=== PATIENT | male | born 1975 | race Caucasian/White ===

== ENCOUNTER 2016-09-08 09:48 | Inpatient (IN) | payer OTHER ==
[~2016-09-08] VITALS: Ht 182.9 cm; Wt 83.5 kg
[2016-09-08 09:50] VITALS: BP 143/87
--- NOTE | 2016-09-08 09:54 | NUR ---
Patient ambulated to bed 03.
--- NOTE | 2016-09-08 09:55 | NUR ---
PATIENT PRESENTS TO ED WITH mid upper back pain radiating to mid chest and shoulders . PT STATES felt nausea and x1 episode of emesis; SKIN IS PINK/WARM/DRY; AAOX4 WITH EVEN AND STEADY GAIT; LUNGS CLEAR BL; HR EVEN AND REGULAR; PT DENIES ANY FEVER SOB, OR COUGH AT THIS TIME; PATIENT STATES PAIN OF 7/10 AT THIS TIME; VSS; PATIENT POSITIONED FOR COMFORT; HOB ELEVATED; BEDRAILS UP X2; BED DOWN. ER MD MADE AWARE OF PT STATUS.
--- NOTE | 2016-09-08 10:03 | NUR ---
Dr. Hassan evaluating patient at bedside.
[2016-09-08] MEDS ORDERED: NITROGLYCERIN 0.4 MG TAB SL ONE (10:15)
[2016-09-08] MEDS ORDERED: ASPIRIN 81 MG TAB.CHEW PO ONE (10:15)
--- NOTE | 2016-09-08 10:21 | NUR ---
XRAY at bedside.
--- NOTE | 2016-09-08 10:37 | NUR ---
fortunato-toby's, reading a book in [facility]. will continue to observe and monitor for any changes. x1 sr up [facility] low and locked position, spoke with pt.
[2016-09-08 10:47] LABS: ANION GAP 14.5 (8-16); CALCIUM 9.1 mg/dL (8.5-10.1); CARBON DIOXIDE 28.1 mmol/L (21-32); POTASSIUM 4.6 mmol/L (3.5-5.1)
[2016-09-08 10:48] LABS: BASOPHILS # (AUTO) 0.2 K/uL (0.00-0.22); EOSINOPHILS # (AUTO) 0.1 K/uL (0-0.4); EOSINOPHILS % (AUTO) 0.8 % (0.0-4.0); HEMATOCRIT 47.6 % (36-52); HEMOGLOBIN 16.1 g/dL (12.0-18.0); LYMPHOCYTES # (AUTO) 1.3 K/uL (2.0-11.5); LYMPHOCYTES % (AUTO) 11.8 % (20.5-51.1); MEAN CORPUSCULAR HEMOGLOBIN 31 pg (27-31); MEAN CORPUSCULAR HGB CONC 34 g/dL (33-37); MEAN CORPUSCULAR VOLUME 91 fL (80-94); MONOCYTES # (AUTO) 0.8 K/uL (0.8-1.0); MONOCYTES % (AUTO) 7.1 % (1.7-9.3); NEUTROPHILS # (AUTO) 8.5 K/uL (1.8-7.7); NEUTROPHILS % (AUTO) 78.3 % (42.2-75.2); PLATELET COUNT (AUTO) 198 K/uL (140-450); RED BLOOD CELL COUNT(AUTO) 5.25 MIL/uL (4.20-6.10); RED CELL DISTRIBUTION WIDTH 12.6 % (11.6-13.7); WHITE BLOOD COUNT (AUTO) 10.9 K/uL (4.8-10.8)
[2016-09-08 10:53] LABS: ALBUMIN 4.2 g/dL (3.4-5.0); TOTAL BILIRUBIN 0.4 mg/dL (0.0-1.0); TOTAL PROTEIN, SERUM 8.1 g/dL (6.4-8.2)
[2016-09-08 10:54] LABS: INR 1.1 (0.8-1.2); PROTHROMBIN TIME 10.7 secs (10.8-13.4)
[2016-09-08 11:04] LABS: D-DIMER < 100 ng/ml (0-400)
[2016-09-08] MEDS: NACL 0.9% 1,000 ML IV SCH (11:14)
[2016-09-08] MEDS ORDERED: DOCUSATE SODIUM 100 MG GELCAP PO PRN (11:15)
[2016-09-08] MEDS ORDERED: MORPHINE SULFATE 2 MG/ML SYR IVP PRN (11:15)
[2016-09-08] MEDS ORDERED: HYDROcodone/APAP 7.5/325 MG 1 TAB PO PRN (11:15)
[2016-09-08] MEDS ORDERED: ONDANSETRON 4 MG/2 ML VIAL IM/IVP PRN (11:15)
[2016-09-08] MEDS ORDERED: ACETAMINOPHEN 325 MG TAB PO PRN (11:15)
--- NOTE | 2016-09-08 11:21 | NUR ---
attempted to give report, drea from tele stated elissa rn will have to call ER back since she is with a pt at this time.
[2016-09-08] MEDS ORDERED: LISINOPRIL 10 MG TAB PO SCH (11:33)
[2016-09-08] MEDS ORDERED: NITROGLYCERIN 0.4 MG TAB SL PRN (11:35)
--- NOTE | 2016-09-08 11:46 | NUR ---
Pt transferred to Tele via jennie , report given to Mitchel SWEET
[2016-09-08 12:20] VITALS: BP 130/78
--- NOTE | 2016-09-08 12:20 | NUR ---
PT ARRIVED FROM ER. PT IS AAOX4, ON ROOM AIR, IV TO LEFT HAND 20G, SKIN INTACT, PT STATES NO CHEST PAIN OR SOB, INITIAL ASSESSMENT COMPLETED, ORIENTED PT TO ROOM AND ENVIRONMENT. ALL SAFETY PRECAUTIONS NET. CALL LIGHT WITHIN REACH, FAMILY AT BEDSIDE. WILL CONTINUE TO MONITOR.
[2016-09-08 13:36] LABS: CHOL/HDL RATIO 8.9 (1-4.5); FREE T4 (FREE THYROXINE) 0.9 ng/dL (0.76-1.46); MAGNESIUM 1.9 mg/dL (1.8-2.4); PHOSPHORUS 2.9 mg/dL (2.5-4.9); THYROID STIMULATING HORMONE 1.51 uIU/mL (0.34-3.76)
--- NOTE | 2016-09-08 14:35 | NUR ---
PT CURRENTLY RESTING, PT STATES NO CHEST PAIN NOR SOB, MOTHER AT BEDSIDE. ALL NEEDS MET. CALL LIGHT WITHIN REACH. WILL CONTINUE TO MONITOR.
[2016-09-08 16:00] VITALS: BP 120/70
--- NOTE | 2016-09-08 16:15 | NUR ---
DR KLEIN IN ROOM WITH PT, PT REFUSED HEPARIN DRIP TREATMENT. RISK/ BENEFITS WERE EXPLAINED TO PT AND MOTHER. PT CONTINUES TO REFUSED. WILL CONTINUE TO MONITOR.
--- NOTE | 2016-09-08 18:25 | NUR ---
PT CURRENTLY RESTING IN BET, PT STATES NO CHEST PAIN. ALL NEEDS MET. CALL LIGHT WITHIN REACH. WILL CONTINUE TO MONITOR.
--- NOTE | 2016-09-08 19:26 | NUR ---
ENDORSED PLAN OF CARE TO NIGHT NURSE, PT IN STABLE CONDITION.
--- NOTE | 2016-09-08 19:27 | NUR ---
RECEIVED REPORT, ASSUMED CARE. PT AAOX4. AT BEDSIDE. RESPIRATION EVEN AND UNLABORED,NO S/S OF RESP DISTRESS, DENIES PAIN AT THIS TIME. IVF NS AT 60ML/HR, INFUSING WELL. LT HAND IV ACCESS, GAUGE 20 INTACT AND PATENT, NO S/S OF INFILTRATION AT THIS TIME. PT ON TELE MONITOR, FULL CODE STATUS.DISCUSSED PLAN OF CARE. PT VERBALIZED UNDERSTANDING. ALL NEEDS ANTICIPATED. CALL LIGHT PLACED WITHIN EASY REACH. WILL CONTINUE TO MONITOR.
[2016-09-08 20:00] VITALS: BP 115/65
--- NOTE | 2016-09-08 20:00 | NUR ---
CHIEF RADIATION THERAPIST CAME TO DRAW BLOOD FOR TROPONIN.
[2016-09-08] MEDS: METOPROLOL 25 MG TAB PO SCH (20:38)
[2016-09-08] MEDS: DOCUSATE SODIUM 100 MG GELCAP PO SCH (20:39)
--- NOTE | 2016-09-08 22:20 | NUR ---
OBTAINED URINE SAMPLE AND SENT TO LAB.
--- NOTE | 2016-09-08 22:30 | NUR ---
DR. NEVILLE PRESENT IN THE UNIT AT THIS TIME. ADVISED UNDERSIGNED HE'S GOING TO CANCEL STRESS TEST TOMORROW DUE TO INCREASING TROPONIN LEVEL. PER MD, HE SPOKE WITH THE PATIENT ABOUT IT AND PT WAS UPSET, ACCUSING HOSPITAL IS MAKING MONEY OUT OF HIM.
[2016-09-09] VITALS: BP 107/66
--- NOTE | 2016-09-09 00:35 | NUR ---
ROUNDS MADE, PT SLEEPING AT THIS TIME. RESPIRATION EVEN AND UNLABORED,NO SOB, NO S/S RESPIRATORY DISTRESS. WILL CONTINUE TO MONITOR.
[2016-09-09] MEDS: CLOPIDOGREL 75 MG TAB PO SCH ×2 (02:45→09:00)
[2016-09-09] MEDS: NACL 0.9% 1,000 ML IV SCH ×2 (03:08→20:39)
[2016-09-09 03:44] LABS: APPEARANCE,URINE SL CLOUDY (CLEAR); BILIRUBIN,URINE NEGATIVE (NEGATIVE); BLOOD, URINE NEGATIVE (NEGATIVE); COLOR,URINE YELLOW (YELLOW); LEUKOCYTE ESTERASE ,URINE NEGATIVE (NEGATIVE); NITRITE, URINE NEGATIVE (NEGATIVE); PH,URINE 6.5 (5.0-9.0); PROTEIN,URINE NEGATIVE (NEGATIVE); UGLUCOSE NEGATIVE (NEGATIVE)
[2016-09-09 03:47] LABS: AMPHETAMINE, URINE NEG. ng/ml (NEG <=1000); BARBITURATE, URINE NEG. ng/ml (NEG <=200); BENZODIAZEPINE, URINE NEG. ng/mL (NEG <=200); CANNABINOID, URINE POS. ng/mL (NEG <=50); COCAINE, URINE NEG. ng/mL (NEG <=300); OPIATE, URINE NEG. ng/mL (NEG <=2000); PHENCYCLIDINE SCREEN,URINE NEG. ng/mL (NEG <=25)
[2016-09-09 04:00] VITALS: BP 105/59
[2016-09-09 04:12] LABS: HEMATOCRIT 50.1 % (36-52); HEMOGLOBIN 16.3 g/dL (12.0-18.0); MEAN CORPUSCULAR HEMOGLOBIN 30 pg (27-31); MEAN CORPUSCULAR HGB CONC 33 g/dL (33-37); MEAN CORPUSCULAR VOLUME 91 fL (80-94); PLATELET COUNT (AUTO) 177 K/uL (140-450); RED BLOOD CELL COUNT(AUTO) 5.49 MIL/uL (4.20-6.10); RED CELL DISTRIBUTION WIDTH 12.9 % (11.6-13.7); WHITE BLOOD COUNT (AUTO) 14.6 K/uL (4.8-10.8)
[2016-09-09 06:28] LABS: BAND % (MANUAL) 5 % (0-8); LYMPHOCYTES % (MANUAL) 10 % (20-46); MONOCYTES % (MANUAL) 5 % (5-12); NEUTROPHILS % (MANUAL) 80 (43-65)
[2016-09-09 06:29] LABS: PLATELET ESTIMATE ADEQUATE
--- NOTE | 2016-09-09 07:26 | NUR ---
PT AWAKE AND VERBALLY RESPONSIVE. NO C/O PAIN AT THIS TIME. NO S/S OF RESP DISTRESS. ALL NEEDS MET. ENDORSED TO NEXT SHIFT FOR CONTINUITY OF CARE. PT IN STABLE CONDITION.
--- NOTE | 2016-09-09 07:27 | NUR ---
RECEIVED REPORT OF PT AT BEDSIDE FROM [employer] NURSE. INTRODUCED MYSELF AND UPDATED THE BOARD. PATIENT IS ALERT AWAKE AND ORIENTED. PT DENIES CHEST PAIN. PT HAS IV ON L HAND 20 G RUNNING NS @60ML/HR. PT HAS NO OTHER COMPLAINTS AT THIS TIME. WILL UPDATE PT ON PLAN OF CARE FOR TODAY. LBM 09/08. CALL LIGHT WITHIN REACH. WILL CONTINUE TO MONITOR.
[2016-09-09 08:00] VITALS: BP 116/70
[2016-09-09 08:24] LABS: T4 (THYROXINE) 5.7 ug/dL (4.5-12.0)
[2016-09-09] MEDS ORDERED: ATORVASTATIN 20 MG TAB PO SCH ×2 (09:00)
[2016-09-09] MEDS ORDERED: LISINOPRIL 10 MG TAB PO SCH (09:00)
[2016-09-09] MEDS: DOCUSATE SODIUM 100 MG GELCAP PO SCH ×2 (09:00→20:39)
[2016-09-09] MEDS ORDERED: ASPIRIN 81 MG TAB.CHEW PO SCH (09:00)
[2016-09-09] MEDS: METOPROLOL 25 MG TAB PO SCH ×2 (09:14→20:33)
--- NOTE | 2016-09-09 09:45 | NUR ---
NIGHT NURSE PULLED THE 0900 PLAVIX DAILY AND ADMINISTERED AT 0245. WILL HOLD THE MED AND RESUME TOMORROW. PHARMACY AWARE.
[2016-09-09 10:03] LABS: HEMOGLOBIN A1C 5.7 % (4.8-5.6)
--- NOTE | 2016-09-09 10:17 | NUR ---
PATIENT HAS BEEN SCREENED AND CATEGORIZED MODERATE NUTRITION RISK. PATIENT WILL BE SEEN WITHIN 3-5 DAYS OF ADMISSION. 09/10/16-09/12/[address]
--- NOTE | 2016-09-09 10:40 | NUR ---
TECH AT BEDSIDE PERFORMING AN ECHO. PT IN STABLE CONDITION. FAMILY AT BEDSIDE.
--- NOTE | 2016-09-09 10:53 | NUR ---
REPORTED TO DR. KLEIN THAT PT HAS BAD HEARTBURN. DR WILL PUT IN ORDER.
[2016-09-09 12:00] VITALS: BP 125/70
--- NOTE | 2016-09-09 12:51 | NUR ---
FAXED INITIAL REVIEW TO [facility] FAX [phone] PRE CERT PHONE [phone] CALLED [facility] ABOUT TRANSFER TO [facility] FOR ANGIOGRAM. SPOKE WITH ILLIYA COORDINATOR ABOUT TRANSFER FOR ANGIO OR TO GO TO [facility] TOMORROW FOR ANGIOGRAM AND RETURN AFTER PROCEDURE. SHE SAID SHE WOULD CALL ME BACK PHONE FOR LILIYA [phone].
[2016-09-09] MEDS ORDERED: PANTOPRAZOLE 40 MG INJ VIAL IVP SCH ×2 (13:04→21:00)
[2016-09-09] MEDS: PANTOPRAZOLE 40 MG INJ VIAL IVP SCH ×2 (13:12→20:33)
--- NOTE | 2016-09-09 13:16 | NUR ---
Dayana RECEIVED A CALL FROM BRENT IN ADMITTING AT [facility] AND HE REQUESTED THAT FACESHEET BE FAXED TO [phone] AND PHONE IS [phone].
--- NOTE | 2016-09-09 13:23 | NUR ---
DR. NEVILLE AT BEDSIDE EXPLAINING TO PT PLAN OF CARE. PT STABLE.
--- NOTE | 2016-09-09 13:48 | NUR ---
RECEIVED A CALL FROM ZACK THOMPSON, ADVICE NURSE FOR THIS PATIENT AT [facility]. HER PHONE IS [phone] HER FAX IS [phone]. SHE SAID SHE IS APPROVING THE ANGIOGRAM AT [facility]. AUTH FOR [facility] IS [id number], EITHER FOR TRANSFER THERE OR FOR PATIENT TO GO THERE FOR ANGIOGRAM AND RETURN HERE. AUTH IS THE SAME FOR [facility] TRANSPORT, [id number].
--- NOTE | 2016-09-09 15:00 | NUR ---
PT IS SLEEPING IN BED. NO DISTRESS NOTED. CALL LIGHT WITHIN REACH. WILL CONTINUE TO MONITOR.
[2016-09-09 16:00] VITALS: BP 114/65
--- NOTE | 2016-09-09 16:32 | NUR ---
1600 CALL PLACED TO [facility] CARDIAC MAPPING TECHNICIAN AND SPOKE WITH GLORIA. PER GLORIA NEVILLE HAS SCHEDULED THE PT FOR 1030 PROCEDURE BUT THAT IS DEPENDENT UPON AVAILABILITY OF A TELEMETRY BED. GLORIA STATED THAT THEY CANNOT HAVE PT COME TO CARDIAC MAPPING TECHNICIAN DIRECTLY AND THAT PT MUST HAVE A TELE BED ASSIGNED PRIOR. GLORIA STATED THAT SHE WOULD CONTACT [facility] REGARDING BED AVAILABILITY. TRANSFER BACK AGREEMENT WAS SENT OVER BY [facility] ADMITTING DEPARTMENT AND IT WAS SIGNED BY THIS [employer] MACHINE OPERATOR AND FAXED BACK TO FAX [phone] AND ADMITTING PHONE #[phone]. MAIN PHONE NUMBER FOR [facility] IS [phone]
--- NOTE | 2016-09-09 17:30 | NUR ---
PT SAT UP IN BED EATING DINNER. FAMILY AT BEDSIDE. NO COMPLAINTS AT THIS TIME. CALL LIGHT WITHIN REACH. WILL CONTINUE TO MONITOR.
--- NOTE | 2016-09-09 19:25 | NUR ---
ENDORSED PT TO THE NIGHTSHIFT NURSE AT BEDSIDE FOR CONTINUITY OF CARE. PT IN STABLE CONDITION.
--- NOTE | 2016-09-09 20:30 | NUR ---
SEEN PT AWAKE, ALERT AND ORIENTED APPEARS COMFORTABLE. PT DENIES ANY PAIN OR DISCOMFORT. INITIAL ASSESSMENT DONE. VITAL SIGNS CHECKED. P Addendum: 09/09/16 at 2133 by Kisha Nguyen RN MEDICATIONS GIVEN W/ TEACHINGS. PT VERBALIZED UNDERSTANDING. PT REFUSED COLACE SINCE HE HAD SEVERAL LOOSE STOOL TODAY. PT DENIES ANY OTHER NEEDS. CALL LIGHT W/IN REACH. WILL CONTINUE TO MONITOR.
[2016-09-09 20:31] VITALS: BP 111/63
[2016-09-10 00:45] VITALS: BP 101/57
--- NOTE | 2016-09-10 00:50 | NUR ---
SEEN PT ASLEEP BUT EASILY AROUSABLE. IVF INFUSING WELL. VITAL SIGNS CHECKED. PT DENIES ANY PAIN OR DISCOMFORT. CALL LIGHT W/IN REACH.
[2016-09-10 04:50] VITALS: BP 112/68
--- NOTE | 2016-09-10 04:50 | NUR ---
SEEN PT AWAKE. VITAL SIGNS CHECKED. PT DENIES ANY DISCOMFORT. WILL CONTINUE TO MONITOR.
--- NOTE | 2016-09-10 05:55 | NUR ---
SPOKE TO BRENT FROM [facility]. TOLD HIM WILL CALL HIM BACK SINCE NURSE IS HELPING A PATIENT. CALL BACK NUMBER IS .
--- NOTE | 2016-09-10 06:15 | NUR ---
SPOKE TO RAEANN FROM ADMITTING REGARDING PT'S ORDER FOR TRANSFER LATER TODAY. SHE SAID PT WILL GO TO [facility].
--- NOTE | 2016-09-10 06:23 | NUR ---
SPOKE TO BETHANY FROM [facility] REGARDING PT'S TRANSFER. REPORT GIVEN TO BETHANY AND INFORMED HER TRANSPORT WILL STILL BE ARRANGE.
--- NOTE | 2016-09-10 06:30 | NUR ---
NOTIFIED CHARGE NURSE ABOUT TRANSFER, ROOM NUMBER AND THAT REPORT WAS GIVEN.
--- NOTE | 2016-09-10 07:25 | NUR ---
SPOKE TO BARBARA FROM [facility] TO ARRANGE FOR TRANSPORT. HE SAID CIVIL ESTIMATOR TIME WILL BE 60MINS-90MINS. INFORMED PT ABOUT IT AND PT JULIÁN ACKNOWLEDGMENT OF TRANSFER. REPORT GIVEN TO DAYSHIFT NURSE.
--- NOTE | 2016-09-10 07:26 | NUR ---
SBAR REPORT RECEIVED FROM KEE RUBIO AT PT BEDSIDE. PT RESTING IN BED. DENIES CHEST PAIN. NO S/S OF ACUTE RESPIRATORY DISTRESS. AMBULATORY. AAOX4. IV SITE PATENT AND INTACT. MADE AWARE OF UPCOMING PLANS AND PROCEDURES FOR TRANSFER. CALL LIGHT WITHIN REACH. BED IN LOWEST POSITION.
[2016-09-10 07:28] LABS: BASOPHILS # (AUTO) 0.1 K/uL (0.00-0.22); BASOPHILS % (AUTO) 1.9 % (0.0-2.0); EOSINOPHILS # (AUTO) 0.2 K/uL (0-0.4); EOSINOPHILS % (AUTO) 3.9 % (0.0-4.0); HEMATOCRIT 43.5 % (36-52); HEMOGLOBIN 14.6 g/dL (12.0-18.0); LYMPHOCYTES # (AUTO) 1.6 K/uL (2.0-11.5); MEAN CORPUSCULAR HEMOGLOBIN 31 pg (27-31); MEAN CORPUSCULAR HGB CONC 34 g/dL (33-37); MEAN CORPUSCULAR VOLUME 92 fL (80-94); MONOCYTES # (AUTO) 0.9 K/uL (0.8-1.0); MONOCYTES % (AUTO) 15.2 % (1.7-9.3); NEUTROPHILS # (AUTO) 3.1 K/uL (1.8-7.7); PLATELET COUNT (AUTO) 156 K/uL (140-450); RED BLOOD CELL COUNT(AUTO) 4.75 MIL/uL (4.20-6.10); RED CELL DISTRIBUTION WIDTH 12.6 % (11.6-13.7); WHITE BLOOD COUNT (AUTO) 5.9 K/uL (4.8-10.8)
[2016-09-10 07:46] LABS: ANION GAP 13.9 (8-16); CALCIUM 8.2 mg/dL (8.5-10.1); CARBON DIOXIDE 24.9 mmol/L (21-32); CREATININE 0.9 mg/dL (0.6-1.3); MAGNESIUM 1.8 mg/dL (1.8-2.4); PHOSPHORUS 3.1 mg/dL (2.5-4.9); POTASSIUM 3.8 mmol/L (3.5-5.1)
[2016-09-10 08:00] VITALS: BP 113/63
[2016-09-10] MEDS ORDERED: LISI10TA11 PO (09:27)
[2016-09-10] MEDS ORDERED: CLOP75TA5 PO (09:27)
[2016-09-10] MEDS ORDERED: ASPI81CT27 PO (09:27)
[2016-09-10] MEDS ORDERED: NITR0.4T1 SL (09:27)
[2016-09-10] MEDS ORDERED: METO25TA PO (09:27)
[2016-09-10] MEDS ORDERED: DOCU-67 PO (09:27)
[2016-09-10] MEDS ORDERED: ATOR20TA40 PO (09:27)
--- NOTE | 2016-09-10 09:30 | NUR ---
[facility] HERE TO TAKE PATIENT TO [place]. PATIENT AND FAMILY AWARE OF TRANSFER. DISCHARGE ORDER FROM PCP. PATIENT DISCHARGE INSTRUCTIONS GIVEN, VERBALIZED UNDERSTANDING. IV SITE PATENT AND INTACT. AMBULATORY. DENIES PAIN. AAOX4. NO S/S OF ACUTE DISTRESS. JOHNSON FROM [employer] CALLED FROM [facility], KEE MADE AWARE OF TRANSFER AT THIS TIME. MADE AWARE OF PATIENT SCHEDULED PROCEDURE AND TRANSFER AT THIS TIME.
--- NOTE | 2016-09-10 11:30 | NUR ---
1009 CALL TO ZACK THOMPSON CM AT [facility] AND INFORMED HER THAT PT WAS TRANSFERRED TO [facility] THIS MORNING FOR ANGIO GRAM. FAXED DISCHARGE SUMMARY TO [phone].
== END 2016-09-10 09:30 | disposition short-term general hospital (02) | DRG 392 ==
LOC: MED 09:48 → MTU 11:20
PROVIDERS: ADMIT Family Medicine; ATTEND Family Medicine
DX: K21.9 Gastro-esophageal reflux disease without esophagitis (principal); I24.9 Acute ischemic heart disease, unspecified; I20.0 Unstable angina; D72.829 Elevated white blood cell count, unspecified; I10 Essential (primary) hypertension; F43.9 Reaction to severe stress, unspecified; F12.90 Cannabis use, unspecified, uncomplicated; F19.10 Other psychoactive substance abuse, uncomplicated; F15.90 Other stimulant use, unspecified, uncomplicated; E78.00 Pure hypercholesterolemia, unspecified; F10.10 Alcohol abuse, uncomplicated; Y90.9 Presence of alcohol in blood, level not specified; E78.2 Mixed hyperlipidemia; F17.210 Nicotine dependence, cigarettes, uncomplicated; Z88.0 Allergy status to penicillin; Z95.1 Presence of aortocoronary bypass graft; Z71.6 Tobacco abuse counseling; Z71.51 Drug abuse counseling and surveillance of drug abuser; Z88.8 Allergy status to other drugs, medicaments and biological substances; Z71.41 Alcohol abuse counseling and surveillance of alcoholic
CPT/HCPCS: 36415; 71010; 80048; 80053; 80305; 81003; 82150; 83036; 83690; 83735; 83880; 84100; 84436; 84439; 84443; 84479; 84484; 85025; 85379; 85610; 85730; 87040; 87081; 93005; 99285; C9113; J7030; Q0092